=== PATIENT | male | born 1965 | race Caucasian/White ===

== ENCOUNTER 2016-08-07 00:19 | Inpatient (IN) | payer OTHER ==
[~2016-08-07] VITALS: Ht 172.7 cm; Wt 78.3 kg
[~2016-08-07 00:19] MED LIST: NEXIUM20 MG PO
[2016-08-07 00:55] LABS: HEMATOCRIT 40.8 % (38.0-50.0); MCH 32.2 PG (29.0-34.0); MCHC 35.5 G/DL (30.0-36.0); MCV 90.5 FL (86-99); PLATELET COUNT 268 K/uL (156-360); RBC DIS.WIDTH-CV 12.6 % (11.8-14.6); RBC DIS.WIDTH-SD 41.2 % (39-53); RED BLOOD COUNT 4.51 M/uL (4.00-5.50); WHITE BLOOD COUNT 11.1 K/uL (4.1-10.2)
[2016-08-07 01:12] LABS: CHLORIDE 101 mEq/L (99-109); POTASSIUM 3.1 mEq/L (3.7-5.4); SODIUM 136 mEq/L (136-147)
[2016-08-07 01:14] LABS: GLUCOSE 128 mg/dL (70-99)
[2016-08-07 01:16] LABS: ANION GAP 13 MEQ/L (2-14); TOTAL BILIRUBIN 0.4 mg/dL (0.0-1.0)
[2016-08-07 01:18] LABS: ALKALINE PHOSPHATASE 61 IU/L (3-129); GFR ESTIMATE (CALCULATED) > 59 mL/min/
[2016-08-07 01:19] LABS: UREA NITROGEN (BUN) 8 mg/dL (9-23)
[2016-08-07 01:25] LABS: TROP-I INTERPRETATION NEGATIVE; TROPONIN-I 0.03 ng/mL (0.0-0.30)
[2016-08-07] MEDS ORDERED: CLONAZEPAM1 MG PO (01:58)
[2016-08-07] MEDS ORDERED: LISINOPRIL10 MG PO (01:58)
[2016-08-07] MEDS ORDERED: LEXAPRO20 MG PO (01:58)
[2016-08-07] MEDS ORDERED: NEXIUM40 MG PO (01:58)
[2016-08-07 04:48] VITALS: BP 183/106
[2016-08-07 07:48] VITALS: BP 183/113
[2016-08-07 09:48] LABS: TROP-I INTERPRETATION POSITIVE
[2016-08-07 10:13] LABS: TROPONIN-I 2.06 ng/mL (0.0-0.30)
[2016-08-07 11:18] VITALS: BP 142/85
[2016-08-07 12:26] LABS: PROTHROMBIN TIME 10.5 (9.2-11.2); PTT 29.1 (25-32)
[2016-08-07 13:50] LABS: TROP-I INTERPRETATION POSITIVE; TROPONIN-I 3.49 ng/mL (0.0-0.30)
[2016-08-07 15:21] VITALS: BP 160/98
[2016-08-07 20:35] VITALS: BP 152/91
[2016-08-07 23:56] VITALS: BP 151/95
[2016-08-08 03:15] VITALS: BP 133/80
[2016-08-08 06:10] LABS: POINT-OF-CARE METER ID UU14162513
[2016-08-08 07:50] VITALS: BP 138/91
[2016-08-08 08:10] LABS: HEMATOCRIT 44.5 % (38.0-50.0); MCH 31.9 PG (29.0-34.0); MCHC 34.6 G/DL (30.0-36.0); MCV 92.1 FL (86-99); MEAN PLAT.VOLUME 11.4 uM^3 (9.0-12.4); PLATELET COUNT 291 K/uL (156-360); RBC DIS.WIDTH-CV 12.9 % (11.8-14.6); RBC DIS.WIDTH-SD 43.9 % (39-53); RED BLOOD COUNT 4.83 M/uL (4.00-5.50); WHITE BLOOD COUNT 12.4 K/uL (4.1-10.2)
[2016-08-08 08:32] LABS: INTER. NORMALIZED RATIO 1.1; PROTHROMBIN TIME 10.8 (9.2-11.2); PTT 47.6 (25-32)
[2016-08-08 08:37] LABS: ALKALINE PHOSPHATASE 60 IU/L (3-129); ANION GAP 14 MEQ/L (2-14); CHLORIDE 101 MEQ/L (99-109); GFR ESTIMATE (CALCULATED) > 59 mL/min/; GLUCOSE 105 mg/dL (70-99); POTASSIUM 4.4 MEQ/L (3.7-5.4); SAMPLE HEMOLYSIS CHECK 0; SAMPLE ICTERIC CHECK 0; SAMPLE LIPEMIA CHECK 0; SODIUM 138 MEQ/L (136-147); TOTAL BILIRUBIN 0.6 MG/DL (0.0-1.0); UREA NITROGEN (BUN) 10 mg/dL (9-23)
[2016-08-08 10:36] LABS: POINT-OF-CARE METER ID UU14162513
[2016-08-08 11:15] VITALS: BP 102/64
[2016-08-08 17:26] VITALS: BP 117/76
[2016-08-08 20:20] VITALS: BP 114/64
[2016-08-09 00:09] VITALS: BP 104/67
[2016-08-09 03:51] VITALS: BP 94/55
[2016-08-09 08:13] VITALS: BP 105/72
[2016-08-09 08:21] LABS: CHLORIDE 109 mEq/L (99-109); POTASSIUM 3.8 mEq/L (3.7-5.4); SODIUM 140 mEq/L (136-147)
[2016-08-09 08:23] LABS: GLUCOSE 93 mg/dL (70-99)
[2016-08-09 08:25] LABS: ANION GAP 9 MEQ/L (2-14)
[2016-08-09 08:27] LABS: GFR ESTIMATE (CALCULATED) > 59 mL/min/
[2016-08-09 08:28] LABS: UREA NITROGEN (BUN) 10 mg/dL (9-23)
[2016-08-09 11:52] VITALS: BP 96/58
[2016-08-09 16:56] VITALS: BP 114/63
[2016-08-09] MEDS ORDERED: ATORVASTATIN CA80 MG PO (17:09)
[2016-08-09] MEDS ORDERED: LOPRESSOR25 MG PO (17:09)
[2016-08-09] MEDS ORDERED: NITROSTAT0.4 MG SL (17:09)
[2016-08-09] MEDS ORDERED: CLOPIDOGREL75 MG PO (17:09)
[2016-08-09] MEDS ORDERED: ASPIR-LOW81 MG PO (17:09)
== END 2016-08-09 19:07 | disposition home or self-care (01) | DRG 247 ==
LOC: EME 00:19 → EDOF 03:19 → 5WEST 03:19 → 4EAST 08-08 15:50
PROVIDERS: Emergency Medicine; Hospitalist; Internal Medicine
DX: I21.4 Non-ST elevation (NSTEMI) myocardial infarction (principal); I10 Essential (primary) hypertension; I25.10 Atherosclerotic heart disease of native coronary artery without angina pectoris; E78.5 Hyperlipidemia, unspecified; R07.89 Other chest pain; F10.239 Alcohol dependence with withdrawal, unspecified; B19.20 Unspecified viral hepatitis C without hepatic coma; F32.9 Major depressive disorder, single episode, unspecified; K21.9 Gastro-esophageal reflux disease without esophagitis; Z72.0 Tobacco use; E87.6 Hypokalemia; R73.9 Hyperglycemia, unspecified
CPT/HCPCS: 71010; 80048; 80053; 82948; 84484; 85027; 85347; 85610; 85730; 87493; 93005; 93306; 99281; 99284; C1725; C1769; C1874; C1887; J1644; J1815; J2060; J2250; J3010; J3246; J3480; J7030; S0028

== ENCOUNTER 2017-05-17 17:51 | Emergency (ER) | payer OTHER ==
[~2017-05-17] VITALS: Ht 172.7 cm; Wt 81.4 kg
[~2017-05-17 17:51] MED LIST changes: +ASPIR-LOW81 MG PO; +ATORVASTATIN CA80 MG PO; +CLONAZEPAM1 MG PO; +CLOPIDOGREL75 MG PO; +LEXAPRO20 MG PO; +LISINOPRIL10 MG PO; +LOPRESSOR25 MG PO; +NEXIUM40 MG PO; +NITROSTAT0.4 MG SL
[2017-05-17 19:32] LABS: HEMATOCRIT 42.4 % (38.0-50.0); HEMOGLOBIN 15.1 G/DL (12.5-16.6); MCH 31.7 PG (29.0-34.0); MCHC 35.6 G/DL (30.0-36.0); MCV 89.1 FL (86-99); PLATELET COUNT 243 K/uL (156-360); RBC DIS.WIDTH-CV 12.6 % (11.8-14.6); RBC DIS.WIDTH-SD 41.5 % (39-53); RED BLOOD COUNT 4.76 M/uL (4.00-5.50); WHITE BLOOD COUNT 7.8 K/uL (4.1-10.2)
[2017-05-17 19:46] LABS: CHLORIDE 103 mEq/L (99-109); POTASSIUM 3.8 mEq/L (3.7-5.4); SODIUM 140 mEq/L (136-147)
[2017-05-17 19:48] LABS: GLUCOSE 106 mg/dL (70-99); TOTAL PROTEIN 6.9 g/dL (6.4-8.3)
[2017-05-17 19:50] LABS: TOTAL BILIRUBIN 0.7 mg/dL (0.0-1.0)
[2017-05-17 19:51] LABS: SERUM ETHYL ALCOHOL < 10 mg/dL
[2017-05-17 19:52] LABS: ALKALINE PHOSPHATASE 67 IU/L (3-129); CREATININE 0.7 mg/dL (0.6-1.3); GFR ESTIMATE (CALCULATED) > 59 mL/min/ (58.99-99999)
[2017-05-17 19:53] LABS: UREA NITROGEN (BUN) 9 mg/dL (9-23)
[2017-05-17 19:54] LABS: AST (GOT) 140 IU/L (2-34)
[2017-05-17 19:55] LABS: ALT (GPT) 85 IU/L (3-49); LIPASE 50 U/L (1.0-51.0)
[2017-05-17 20:52] LABS: MAGNESIUM 1.5 mg/dL (1.3-2.7)
[2017-05-17 20:57] LABS: PHOSPHORUS 3.8 mg/dL (2.5-4.9)
[2017-05-17 23:13] LABS: CHLORIDE 107 mEq/L (99-109); POTASSIUM 3.8 mEq/L (3.7-5.4); SODIUM 140 mEq/L (136-147)
[2017-05-17 23:15] LABS: GLUCOSE 94 mg/dL (70-99)
[2017-05-17 23:19] LABS: CREATININE 0.7 mg/dL (0.6-1.3); GFR ESTIMATE (CALCULATED) > 59 mL/min/ (58.99-99999); UREA NITROGEN (BUN) 8 mg/dL (9-23)
[2017-05-17 23:45] LABS: AMPHETAMINE NEGATIVE (500 ng/mL); BARBITURATES NEGATIVE (200 ng/mL); BENZODIAZEPINES NEGATIVE (150 ng/mL); BUPRENORPHINE NEGATIVE (10 ng/mL); COCAINE NEGATIVE (150 ng/mL); METHADONE NEGATIVE (200 ng/mL); METHAMPHETAMINE NEGATIVE (500 ng/mL); OPIATES (MORPHINE) NEGATIVE (100 ng/mL); OXYCODONE NEGATIVE (100 ng/mL); PHENCYCLIDINE NEGATIVE (25 ng/mL); PROPOXYPHENE NEGATIVE (300 ng/mL); THC CANNABINOIDS NEGATIVE (50 ng/mL); TRICYCLIC ANTIDEPRESSANTS NEGATIVE (300 ng/mL)
[2017-05-17] MEDS ORDERED: LIBRIUM25 MG PO (23:48)
[2017-05-18 00:30] VITALS: BP 167/104
== END 2017-05-18 00:32 | disposition home or self-care (01) ==
LOC: EME 17:51
PROVIDERS: Physician Assistant
DX: F10.239 Alcohol dependence with withdrawal, unspecified (principal); Y90.0 Blood alcohol level of less than 20 mg/100 ml; K21.9 Gastro-esophageal reflux disease without esophagitis; I25.2 Old myocardial infarction; Z79.02 Long term (current) use of antithrombotics/antiplatelets; F41.9 Anxiety disorder, unspecified; B19.20 Unspecified viral hepatitis C without hepatic coma; G25.81 Restless legs syndrome; F17.200 Nicotine dependence, unspecified, uncomplicated
CPT/HCPCS: 80048 91; 80053; 83690; 83735; 84100; 85027; 93005; 99281; 99285; G0480; J2060; J7030; J7120